=== PATIENT | male | born 1945 | race Caucasian/White ===

== ENCOUNTER 2016-07-14 08:05 | Inpatient (IN) | payer MEDICARE ==
[2016-07-14] MEDS ORDERED: SODIUM CHLORIDE 0.9% 500 ML IV STA (08:14)
--- NOTE | 2016-07-14 08:18 | ED ---
General Adult HPI - General Stated complaint: head feels funny Time Seen by Provider: 07/14/16 08:05 Source: RN notes reviewed - History of Present Illness Initial comments: This is a 71-year-old male who presents emergency Department complaining that he gets a foggy sensation in his head and any has a feeling of impending doom. Patient states it lasts for about 5 minutes it occurred once yesterday once in the middle the night and once again this morning. Patient states all cases it only lasted 5 minutes. Patient states he had a sense of impending doom and he thought he might pass out and it scared him because he thought he might actually . Patient denies any headache patient denies numbness or weakness. Patient denies any recent fever or chills. Patient denies any neck pain. Patient states he feels a little lightheaded and mildly nauseated but he thinks it might be because he hasn't eaten yet today. Patient denies any palpitations only has a history of A. fib. Patient denies any shortness of breath or difficulty breathing. Patient denies any chest pain. Patient denies any abdominal pain patient denies any vomiting. Patient states he has had diarrhea chronically for about 3 months now. 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 - Related Data Home Medications Medication Instructions Recorded Confirmed Atenolol [Atenolol] 50 mg PO DAILY 07/14/16 07/14/16 Citalopram Hydrobromide 60 mg PO DAILY 07/14/16 07/14/16 [Citalopram HBr] Diphenoxylate HCl/Atropine 2 tab PO Q6H PRN 07/14/16 07/14/16 [Diphenoxylate-Atrop 2.5-0.025] Doxazosin Mesylate [Doxazosin 8 mg PO DAILY 07/14/16 07/14/16 Mesylate] Simvastatin [Simvastatin] 80 mg PO DAILY 07/14/16 07/14/16 Allergies Allergy/AdvReac Type Severity Reaction Status Date / Time No Known Allergies Allergy Verified 07/14/16 08:36 Review of Systems ROS Statement: Those systems with pertinent positive or pertinent negative responses have been documented in the HPI. ROS Other: All systems not noted in ROS Statement are negative. General Exam - General Exam Comments Initial Comments: GENERAL: Patient is well-developed and well-nourished. Patient is nontoxic and well- hydrated and is in mild distress. ENT: Neck is soft and supple. No significant lymphadenopathy is noted. Oropharynx is clear. Moist mucous membranes. Neck has full range of motion without eliciting any pain. EYES: The sclera were anicteric and conjunctiva were pink and moist. Extraocular movements were intact and pupils were equal round and reactive to light. Eyelids were unremarkable. PULMONARY: Unlabored respirations. Good breath sounds bilaterally. No audible rales rhonchi or wheezing was noted. CARDIOVASCULAR: There is a regular rate and rhythm without any murmurs gallops or rubs. ABDOMEN: Soft and nontender with normal bowel sounds. No palpable organomegaly was noted. There is no palpable pulsatile mass. SKIN: Skin is clear with no lesions or rashes and otherwise unremarkable. NEUROLOGIC: Patient is alert and oriented x3. Cranial nerves II through XII are grossly intact. Motor and sensory are also intact. Normal speech, volume and content. Symmetrical smile. MUSCULOSKELETAL: Normal extremities with adequate strength and full range of motion. No lower extremity swelling or edema. No calf tenderness. LYMPHATICS: No significant lymphadenopathy is noted PSYCHIATRIC: Normal psychiatric evaluation. Normal interpersonal interactions appears functionally intact in deals appropriately with others. No signs of depression. No signs of anxiety. Course Vital Signs 07/14/16 07/14/16 07/14/16 08:07 09:20 09:33 Temperature 97.7 F Pulse Rate 56 L 52 L Pulse Rate [ 55 L Sitting Neuropsychologist] Pulse Rate [ 60 Standing Neuropsychologist ] Pulse Rate [ 51 L Supine Neuropsychologist] Respiratory 14 14 Rate Blood Pressure 125/64 151/69 Blood Pressure 158/70 [Sitting] Blood Pressure 150/72 [Standing] Blood Pressure 151/69 [Supine] O2 Sat by Pulse 96 95 Oximetry Medical Decision Making - Medical Decision Making EKG shows a sinus bradycardia with occasional PVC at 56 bpm [place] interval is 160 QRS is 98 QT interval 460 QTC is 443 per patient's EKG shows some minimal ST segment depression in leads V5 and V6 and some T-wave flattening in inferior leads II, III, and F VF I did compare this to an old EKG there are no acute changes noted. - Lab Data Result diagrams: 07/14/16 08:32 03/03/17 08:32 Lab Results 07/14/16 07/14/16 07/14/16 Range/Units 08:24 08:32 08:32 WBC 5.1 (3.8-10.6) k/uL RBC 4.89 (4.30-5.90) m/uL Hgb 14.5 (13.0-17.5) gm/dL Hct 43.4 (39.0-53.0) % MCV 88.6 (80.0-100.0) fL MCH 29.5 (25.0-35.0) pg MCHC 33.3 (31.0-37.0) g/dL RDW 12.8 (11.5-15.5) % Plt Count 211 (150-450) k/uL Neutrophils % 54 % Lymphocytes % 33 % Monocytes % 7 % Eosinophils % 4 % Basophils % 0 % Neutrophils # 2.7 (1.3-7.7) k/uL Lymphocytes # 1.6 (1.0-4.8) k/uL Monocytes # 0.3 (0-1.0) k/uL Eosinophils # 0.2 (0-0.7) k/uL Basophils # 0.0 (0-0.2) k/uL PT (9.0-12.0) sec INR (<1.1) APTT (22.0-30.0) sec Sodium (137-145) mmol/L Potassium (3.5-5.1) mmol/L Chloride (98-107) mmol/L Carbon Dioxide (22-30) mmol/L Anion Gap mmol/L BUN (9-20) mg/dL Creatinine (0.66-1.25) mg/dL Est GFR (MDRD) Af Amer (>60 ml/min/1.73 sqM) Est GFR (MDRD) Non-Af (>60 ml/min/1.73 sqM) Glucose (74-99) mg/dL Calcium (8.4-10.2) mg/dL Magnesium (1.6-2.3) mg/dL Total Bilirubin (0.2-1.3) mg/dL AST (17-59) U/L ALT (21-72) U/L Alkaline Phosphatase (38-126) U/L Total Creatine Kinase 95 (55-170) U/L CK-MB (CK-2) 1.4 (0.0-2.4) ng/mL CK-MB (CK-2) Rel Index 1.5 Troponin I <0.012 (0.000-0.034) ng/mL Total Protein (6.3-8.2) g/dL Albumin (3.5-5.0) g/dL Urine Color Yellow Urine Appearance Clear (Clear) Urine pH 6.5 (5.0-8.0) Ur Specific [place] 1.020 (1.001-1.035) Urine Protein Negative (Negative) Urine Glucose (UA) Negative (Negative) Urine Ketones Negative (Negative) Urine Blood Negative (Negative) Urine Nitrate Negative (Negative) Urine Bilirubin Negative (Negative) Urine Urobilinogen <2.0 (<2.0) mg/dL Ur Leukocyte Esterase Negative (Negative) Urine RBC <1 (0-5) /hpf Urine WBC 1 (0-5) /hpf Urine Mucus Occasional H (None) /hpf 07/14/16 07/14/16 Range/Units 08:32 08:32 WBC (3.8-10.6) k/uL RBC (4.30-5.90) m/uL Hgb (13.0-17.5) gm/dL Hct (39.0-53.0) % MCV (80.0-100.0) fL MCH (25.0-35.0) pg MCHC (31.0-37.0) g/dL RDW (11.5-15.5) % Plt Count (150-450) k/uL Neutrophils % % Lymphocytes % % Monocytes % % Eosinophils % % Basophils % % Neutrophils # (1.3-7.7) k/uL Lymphocytes # (1.0-4.8) k/uL Monocytes # (0-1.0) k/uL Eosinophils # (0-0.7) k/uL Basophils # (0-0.2) k/uL PT 10.7 (9.0-12.0) sec INR 1.1 (<1.1) APTT 23.1 (22.0-30.0) sec Sodium 140 (137-145) mmol/L Potassium 4.5 (3.5-5.1) mmol/L Chloride 105 (98-107) mmol/L Carbon Dioxide 26 (22-30) mmol/L Anion Gap 9 mmol/L BUN 20 (9-20) mg/dL Creatinine 0.94 (0.66-1.25) mg/dL Est GFR (MDRD) Af Amer >60 (>60 ml/min/1.73 sqM) Est GFR (MDRD) Non-Af >60 (>60 ml/min/1.73 sqM) Glucose 102 H (74-99) mg/dL Calcium 9.7 (8.4-10.2) mg/dL Magnesium 2.2 (1.6-2.3) mg/dL Total Bilirubin 1.1 (0.2-1.3) mg/dL AST 24 (17-59) U/L ALT 36 (21-72) U/L Alkaline Phosphatase 58 (38-126) U/L Total Creatine Kinase (55-170) U/L CK-MB (CK-2) (0.0-2.4) ng/mL CK-MB (CK-2) Rel Index Troponin I (0.000-0.034) ng/mL Total Protein 7.1 (6.3-8.2) g/dL Albumin 4.2 (3.5-5.0) g/dL Urine Color Urine Appearance (Clear) Urine pH (5.0-8.0) Ur Specific [place] (1.001-1.035) Urine Protein (Negative) Urine Glucose (UA) (Negative) Urine Ketones (Negative) Urine Blood (Negative) Urine Nitrate (Negative) Urine Bilirubin (Negative) Urine Urobilinogen (<2.0) mg/dL Ur Leukocyte Esterase (Negative) Urine RBC (0-5) /hpf Urine WBC (0-5) /hpf Urine Mucus (None) /hpf Disposition Clinical Impression: Near syncope Disposition: ADMITTED IP TO THIS [facility] Time of Disposition: 10:58
[2016-07-14 08:50] LABS: Basophils % (A) 0 %; CH 30.6; CHCM 34.7; Eosinophils # (A) 0.2 k/uL (0-0.7); Eosinophils % (A) 4 %; HCT 43.4 % (39.0-53.0); HDW 2.69; HGB 14.5 gm/dL (13.0-17.5); Luc # (Auto) 0.14; Luc % (Auto) 3; Lymphocytes # (A) 1.6 k/uL (1.0-4.8); Lymphocytes % (A) 33 %; MCH 29.5 pg (25.0-35.0); MCHC 33.3 g/dL (31.0-37.0); MCV 88.6 fL (80.0-100.0); Monocytes # (A) 0.3 k/uL (0-1.0); Monocytes % (A) 7 %; Neutrophils # (A) 2.7 k/uL (1.3-7.7); Neutrophils % (A) 54 %; RBC 4.89 m/uL (4.30-5.90); RDW 12.8 % (11.5-15.5); WBC 5.1 k/uL (3.8-10.6); WBC (Perox) 5.02
[2016-07-14 09:00] LABS: Appearance,Urine Clear (Clear); Bilirubin,Urine Negative (Negative); Glucose,Urine (UA) Negative (Negative); Ketones,Urine Negative (Negative); Leukocyte Esterase,Urine Negative (Negative); Mucus,Urine Occasional /hpf; Nitrite,Urine Negative (Negative); PH, Urine 6.5 (5.0-8.0); Particle Count 3286; Protein,Urine Negative (Negative); RBC,Urine <1 /hpf (0-5); UA Billing (MACRO vs. MICRO) CHEM; Urobilinogen,Urine <2.0 mg/dL (<2.0); WBC,Urine 1 /hpf (0-5)
[2016-07-14 09:01] LABS: INR 1.1 (<1.1); Partial Thromboplastin Time 23.1 sec (22.0-30.0); Prothrombin Time 10.7 sec (9.0-12.0)
[2016-07-14 09:04] LABS: ALT 36 U/L (21-72); AST 24 U/L (17-59); Alkaline Phosphatase 58 U/L (38-126); Anion Gap 9 mmol/L; Blood Urea Nitrogen 20 mg/dL (9-20); Calcium 9.7 mg/dL (8.4-10.2); Carbon Dioxide 26 mmol/L (22-30); Chloride 105 mmol/L (98-107); Glucose 102 mg/dL (74-99); Magnesium 2.2 mg/dL (1.6-2.3); Non-African American GFR(MDRD) >60 (>60 ml/min/1.73 sqM); Potassium 4.5 mmol/L (3.5-5.1); Sodium 140 mmol/L (137-145); Total Bilirubin 1.1 mg/dL (0.2-1.3); Total Protein 7.1 g/dL (6.3-8.2)
[2016-07-14 09:10] LABS: Creatine Kinase 95 U/L (55-170)
--- NOTE | 2016-07-14 09:10 | CT ---
EXAMINATION TYPE: CT brain wo con DATE OF EXAM: 07/14/2016 9:06 AM COMPARISON: NONE INDICATION: Patient complains of altered mental status. "Head feels funny." Patient denies headach e, dizziness, or vision changes. DLP: 1046 mGycm, Automated exposure control for dose reduction was used. CONTRAST: None CT of the brain is performed utilizing 3 mm thick sections through the posterior fossa and 3 mm thick sections through the remaining calvarium. Study is performed within 24 hours of arrival to the hosp ital. No abnormal hyperdensity is present to suggest an acute intracranial hemorrhage. No mass lesion is evident. No acute infarcts are evident. [place] space or possibly old lacunar infarct is in the left ba ariella ganglion. Ventricles and sulci are appropriate for the patient age. Paranasal sinuses and mastoid air cells within the [id number] are clear. IMPRESSIONS: 1. No acute intracranial process.
--- NOTE | 2016-07-14 09:13 | XR ---
EXAMINATION TYPE: XR chest 2V DATE OF EXAM: 07/14/2016 9:09 AM COMPARISON: NONE INDICATION: Chest pain TECHNIQUE: Single frontal view of the chest is obtained. FINDINGS: The heart size is normal. The pulmonary vasculature is normal. The lungs are clear. Sternotomy wires are present from previous CABG. No prior films this location. IMPRESSION: 1. No acute pulmonary process.
[2016-07-14 09:23] LABS: Creatine Kinase MB 1.4 ng/mL (0.0-2.4); Troponin I <0.012 ng/mL (0.000-0.034)
[2016-07-14] MEDS ORDERED: SODIUM CHLORIDE 0.9% 1,000 ML IV ONE (10:58)
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
[2016-07-14 17:34] VITALS: BP 143/67; PULSE 52; RESP 18; TEMP 98.6; BMI 22.8
== END 2016-07-14 18:31 | disposition home or self-care (01) | DRG 312 ==
LOC: EC 08:05 → 6SEL 10:58
PROVIDERS: ADMIT Internal Medicine; ATTEND Internal Medicine
DX: R55 Syncope and collapse (principal); I48.91 Unspecified atrial fibrillation; I10 Essential (primary) hypertension; I25.10 Atherosclerotic heart disease of native coronary artery without angina pectoris; I49.3 Ventricular premature depolarization; E78.5 Hyperlipidemia, unspecified; K52.9 Noninfective gastroenteritis and colitis, unspecified; R11.0 Nausea; Z79.899 Other long term (current) drug therapy; Z87.828 Personal history of other (healed) physical injury and trauma; Z95.1 Presence of aortocoronary bypass graft; Z86.73 Personal history of transient ischemic attack (TIA), and cerebral infarction without residual deficits; Z98.61 Coronary angioplasty status; Z63.6 Dependent relative needing care at home
CPT/HCPCS: 36415; 70450; 71020; 80053; 81003; 82550; 82553; 83735; 84484; 85025; 85610; 85730; 93005; 96360; 96361; 99285